=== PATIENT | female | born 1990 | race Caucasian/White ===

== ENCOUNTER 2025-01-20 13:49 | Emergency (ER) | payer OTHER ==
[~2025-01-20] VITALS: Ht 154.9 cm; Wt 65.0 kg
[2025-01-20 14:00] VITALS: TEMP 36.7; O2SAT 99
[2025-01-20] MEDS ORDERED: BO1 TP (18:00)
[2025-01-20 18:25] VITALS: BP 111/73; PULSE 90; RESP 14; O2SAT 98
== END 2025-01-20 18:26 | disposition home or self-care (01) ==
LOC: ER 13:49
DX: S61.411A Laceration without foreign body of right hand, initial encounter (principal); X58.XXXA Exposure to other specified factors, initial encounter; Y93.89 Activity, other specified; Y92.89 Other specified places as the place of occurrence of the external cause; Y99.8 Other external cause status
CPT/HCPCS: 73130; 99283